=== PATIENT | female | born 1950 | race Caucasian/White ===

== ENCOUNTER → 2018-01-09 | Outpatient (CLI) | payer MEDICAID, MEDICARE ==
[~2018-01-09] MED LIST: CHRO200C PO; CITA20TA9 PO; ENAL10TA PO; ESTR1TAB15 PO; GADOBUTROL 7.5 MMOL/7.5 ML PFS ONE; MAGN100T6 PO; PRAV40TA2 PO; RED600CA2 PO; SOLI5TAB2 PO
== END | disposition home or self-care (01) ==
LOC: CFH 14:41
PROVIDERS: ATTEND Physician Assistant
DX: M48.07 Spinal stenosis, lumbosacral region (principal); M51.16 Intervertebral disc disorders with radiculopathy, lumbar region; M41.86 Other forms of scoliosis, lumbar region; G89.29 Other chronic pain
CPT/HCPCS: 72158; 82565; A9585

== ENCOUNTER → 2019-11-19 | Outpatient (CLI) | payer MEDICARE, MEDICAID ==
[~2019-11-19] MED LIST changes: +ACET-1600 PO; +ACET-709 PO; +ACET-711 PO; +BIOT25005 PO; +CALC250T PO; +CHOL100011 PO; +CHOL3000 PO; +CHOLINE PO; -CHRO200C PO; +CHROMIUM PICO200 MCG PO; +CYCL-259 PO; +DICL100G19 TP; +DICL1ADH15 TD; +ENAL20TA PO; +FAMO20TA7 PO; +FISH1CAP PO; +FLUT9.9S NS; -GADOBUTROL 7.5 MMOL/7.5 ML PFS ONE; +GLUC500T11 PO; +LEVO50TA5 PO; +LORA-445 PO; +MELO15TA24 PO; +METH750T87 PO; +MIRA50TA PO; +MULT-717 PO; +OMEP40CA42 PO; +PROP20TA PO; +TIZA2TAB2 PO; +TRIA1TAB3 PO; +UBID1CAP43 PO; +VIT1CAPS44 PO; +ZINC50TA2 PO; +[UNRECOGNIZED DRUG - CODE] PO; +iron PO
[2019-11-19 16:53] LABS: BASOPHILS # (AUTO) 0.04 x10^3/uL (0-0.1); BASOPHILS % (AUTO) 1 % (0-1); EOSINOPHILS # (AUTO) 0.22 x10^3/uL (0-0.4); EOSINOPHILS % (AUTO) 4 % (1-7); LYMPHOCYTES # (AUTO) 2.53 x10^3/uL (1-3.4); LYMPHOCYTES % (AUTO) 45 % (22-44); MD NO; MEAN CORPUSCULAR HEMOGLOBIN 31.4 pg (27.0-34.8); MEAN CORPUSCULAR HGB CONC 33.5 g/dL (32.4-35.8); MEAN CORPUSCULAR VOLUME 93.9 fL (80-100); MEAN PLATELET VOLUME 7.2 fL (7.4-10.4); MONOCYTES # (AUTO) 0.45 x10^3/uL (0.2-0.8); MONOCYTES % (AUTO) 8 % (2-9); NEUTROPHILS # (AUTO) 2.41 x10^3/uL (1.8-6.8); NEUTROPHILS % (AUTO) 43 % (42-75); PLATELET COUNT 294 x10^3/uL (130-400); RED BLOOD COUNT 4.21 x10^6/uL (3.82-5.3); RED CELL DISTRIBUTION WIDTH 12.6 % (9.6-15.2)
[2019-11-19 16:56] LABS: ALANINE AMINOTRANSFERASE 20 U/L (12-78); ALBUMIN 3.3 g/dL (3.4-5.0); ANION GAP 6 mmol/L (5-15); CALCIUM 8.6 mg/dL (8.5-10.1); CHLORIDE 109 mmol/L (98-107); CREATININE 0.71 mg/dL (0.55-1.02); INTERNATIONAL NORMALIZED RATIO 0.92 (0.93-1.1); PROTHROMBIN TIME 9.7 Seconds (9.6-11.5)
[2019-11-19 16:58] LABS: ALKALINE PHOSPHATASE 78 U/L (45-117); BILIRUBIN,TOTAL 0.2 mg/dL (0.2-1.0); TOTAL PROTEIN 7.1 g/dL (6.4-8.2)
== END | disposition home or self-care (01) ==
LOC: STAR 14:53
PROVIDERS: ATTEND Neurological Surgery
DX: Z01.818 Encounter for other preprocedural examination (principal); M47.26 Other spondylosis with radiculopathy, lumbar region; M51.16 Intervertebral disc disorders with radiculopathy, lumbar region; M48.062 Spinal stenosis, lumbar region with neurogenic claudication; M47.818 Spondylosis without myelopathy or radiculopathy, sacral and sacrococcygeal region; I45.10 Unspecified right bundle-branch block; I45.81 Long QT syndrome; Z88.1 Allergy status to other antibiotic agents; Z88.0 Allergy status to penicillin; Z88.2 Allergy status to sulfonamides; Z88.8 Allergy status to other drugs, medicaments and biological substances
CPT/HCPCS: 36415; 71046; 80053; 85025; 85610; 85730; 93005

== ENCOUNTER 2019-11-25 11:23 | Inpatient (IN) | payer MEDICARE, MEDICAID ==
[~2019-11-25] VITALS: Ht 165.1 cm; Wt 93.3 kg
[~2019-11-25 11:23] MED LIST changes: +BACITRACIN 50,000 UNIT ONE; +BACITRACIN OINT 500U/GM, 15 GM ONE; +BACITRACIN ZINC OINT 500U/GM, 0.9 GM ONE; +BUPIVACAINE/PF 0.5% ONE; +EPINEPHRINE 1 MG/ML, 1ML ONE; +FENTANYL PF 250 MCG/5ML ONE; +LIDOCAINE-MPF 2% ,5ML ONE; +PROPOFOL 10 MG/ML, 20ML ONE; +THROMBIN 5,000 UNIT VIAL TP ONE
[2019-11-25] MEDS ORDERED: PROPOFOL 50 ML ONE ×3 (11:54→15:32)
[2019-11-25] MEDS ORDERED: ROCURONIUM 10MG/ML,5ML ONE ×2 (11:56→11:57)
[2019-11-25] MEDS ORDERED: GABAPENTIN 300 MG CAPSULE PO ONE (12:00)
[2019-11-25] MEDS ORDERED: ACETAMINOPHEN 500 MG TABLET PO ONE (12:00)
[2019-11-25] MEDS ORDERED: ACETAMINOPHEN 500 MG TABLET ONE (12:09)
[2019-11-25] MEDS ORDERED: GABAPENTIN 300 MG CAPSULE ONE (12:10)
[2019-11-25] MEDS ORDERED: LACTATED RINGERS 1,000 ML IV SCH (12:13)
[2019-11-25] MEDS ORDERED: morphine SULFATE 10 MG/ML, 1ML ONE ×2 (12:15→18:42)
[2019-11-25] MEDS ORDERED: CLINDAMYCIN 150 MG/ML, 6ML ONE (12:15)
[2019-11-25] MEDS ORDERED: SODIUM CHLORIDE 0.9% PF 10ML ONE ×2 (12:17)
[2019-11-25] MEDS ORDERED: PHENYLEPHRINE 10 MG/ML ONE ×2 (12:28→13:12)
[2019-11-25] MEDS ORDERED: DEXAMETHASONE 4 MG/ML, 1ML ONE (12:28)
[2019-11-25] MEDS ORDERED: EPHEDRINE 50 MG/ML, 1ML IVPush PRN (12:30)
[2019-11-25] MEDS ORDERED: HYDROcodone/APAP 7.5-325MG/15ML UDC PO PRN (12:30)
[2019-11-25] MEDS ORDERED: MEPERIDINE/PF 25MG/ML,1ML IVPush PRN (12:30)
[2019-11-25] MEDS ORDERED: hydrALAzine 20 MG/ML, 1ML IV PRN (12:30)
[2019-11-25] MEDS ORDERED: FENTANYL PF 100 MCG/2ML IV PRN (12:30)
[2019-11-25] MEDS ORDERED: ONDANSETRON 2MG/ML, 2ML IV PRN (12:30)
[2019-11-25] MEDS ORDERED: PROMETHAZINE 25 MG/ML, 1ML IV PRN (12:30)
[2019-11-25] MEDS ORDERED: VANCOMYCIN 1,000 MG ONE ×2 (12:47→17:05)
[2019-11-25] MEDS ORDERED: VANCOMYCIN 500 MG ONE (12:47)
[2019-11-25] MEDS ORDERED: BACITRACIN 50,000 UNIT ONE (12:53)
[2019-11-25] MEDS ORDERED: THROMBIN 5,000 UNIT VIAL TP ONE (15:24)
[2019-11-25] MEDS ORDERED: ONDANSETRON 2MG/ML, 2ML ONE (17:33)
[2019-11-25] MEDS ORDERED: PHARMACY MAY ADJ FOR RENAL FX MC PRN (18:30)
[2019-11-25] MEDS ORDERED: METHOCARBAMOL 1,000 MG in DEXTROSE 5% 100 ML IV ONE (18:30)
[2019-11-25] MEDS ORDERED: MAGNESIUM HYDROXIDE 8%, 30ML UDC PO PRN (18:30)
[2019-11-25] MEDS ORDERED: SENNA/DOCUSATE TABLET PO PRN (18:30)
[2019-11-25] MEDS ORDERED: FENTANYL PF 100 MCG/2ML ONE (18:42)
[2019-11-25] MEDS: MORPHINE SULFATE 4 MG/ML, 1ML IVPush PRN ×2 (18:52→19:40)
[2019-11-25 20:25] VITALS: BP 144/72
[2019-11-25] MEDS ORDERED: PHARMACOKINETIC MONITORING MC PRN (22:00)
[2019-11-25] MEDS ORDERED: PHARMACOKINETIC CONSULTATION MC ONE (22:00)
[2019-11-25] MEDS: NS + 20MEQ KCL 1,000 ML IV SCH (22:41)
[2019-11-25] MEDS: ONDANSETRON 2MG/ML, 2ML IVPush PRN (23:52)
[2019-11-25] MEDS: OXYcodone/APAP 5/325MG TABLET PO PRN (23:52)
[2019-11-26] VITALS: BP 163/77
[2019-11-26] MEDS ORDERED: VANCOMYCIN PMX 1GM/200ML 200 ML IV ONE
[2019-11-26] MEDS: OXYcodone/APAP 5/325MG TABLET PO PRN (03:58)
[2019-11-26 04:04] VITALS: BP 159/89
[2019-11-26 05:16] LABS: CREATININE 0.64 mg/dL (0.55-1.02)
[2019-11-26] MEDS: HEPARIN 5,000 UNITS/ML, 1ML SQ SCH ×3 (05:42→22:49)
[2019-11-26] MEDS: ONDANSETRON 2MG/ML, 2ML IVPush PRN ×2 (05:42→22:10)
[2019-11-26 06:51] VITALS: BP 166/84
[2019-11-26] MEDS: NS + 20MEQ KCL 1,000 ML IV SCH ×2 (08:30→20:26)
[2019-11-26] MEDS: VANCOMYCIN PER PHARMACY MC SCH (09:00)
[2019-11-26] MEDS ORDERED: LORazepam 0.5MG TABLET PO PRN (10:30)
[2019-11-26] MEDS ORDERED: TRIAMTERENE-HCTZ 37.5/25 MG TABLET PO PRN (10:30)
[2019-11-26] MEDS ORDERED: CYCL-259 PO (10:50)
[2019-11-26] MEDS ORDERED: ACET-709 PO (10:57)
[2019-11-26] MEDS: METHOCARBAMOL 750 MG TABLET PO SCH ×2 (12:32→20:46)
[2019-11-26 13:28] VITALS: BP 165/88
[2019-11-26] MEDS ORDERED: DIPHENHYDRAMINE 25 MG CAPSULE ONE (14:55)
[2019-11-26] MEDS: DIPHENHYDRAMINE 25 MG CAPSULE PO PRN ×2 (15:02→20:55)
[2019-11-26] MEDS: PROPRANOLOL 20 MG TABLET PO SCH (15:57)
[2019-11-26 16:01] VITALS: BP 159/77
[2019-11-26] MEDS: APAP/CODEINE 300/30MG TABLET PO PRN (17:31)
[2019-11-26 19:22] VITALS: BP 154/88
[2019-11-26] MEDS ORDERED: ACETAMINOPHEN 500 MG TABLET PO PRN (20:00)
[2019-11-26] MEDS: VANCOMYCIN 1,700 MG in SODIUM CHLORIDE 0.9% 250 ML IV SCH (20:26)
[2019-11-26] MEDS: ENALAPRIL 20MG TABLET PO SCH (20:30)
[2019-11-26] MEDS: HYDROcodone/APAP 5/325 TABLET PO PRN (20:47)
[2019-11-26] MEDS ORDERED: FLUTICASONE NASAL SPRAY 16GM NAS SCH (21:00)
[2019-11-26] MEDS ORDERED: PROPRANOLOL 20 MG TABLET PO SCH (21:00)
[2019-11-26] MEDS ORDERED: FAMOTIDINE 40 MG TABLET PO SCH (21:00)
[2019-11-26] MEDS ORDERED: PRAVASTATIN 40 MG TABLET PO SCH (21:00)
[2019-11-26] MEDS ORDERED: MORPHINE SULFATE 4 MG/ML, 1ML IVPush PRN (23:30)
[2019-11-27] MEDS: PROMETHAZINE 25 MG/ML, 1ML IM PRN ×2 (00:06→11:16)
[2019-11-27 00:20] VITALS: BP 156/85
[2019-11-27] MEDS: HYDROcodone/APAP 5/325 TABLET PO PRN ×3 (01:34→11:16)
[2019-11-27] MEDS: METHOCARBAMOL 750 MG TABLET PO SCH ×2 (04:30→12:42)
[2019-11-27] MEDS ORDERED: LEVOTHYROXINE 50 MCG TABLET PO SCH (06:00)
[2019-11-27] MEDS: PROPRANOLOL 20 MG TABLET PO SCH ×2 (06:19→16:08)
[2019-11-27] MEDS: HEPARIN 5,000 UNITS/ML, 1ML SQ SCH ×2 (06:19→14:46)
[2019-11-27] MEDS: NS + 20MEQ KCL 1,000 ML IV SCH ×2 (06:20→15:48)
[2019-11-27 07:51] VITALS: BP 125/70
[2019-11-27] MEDS ORDERED: ZINC SULFATE 220 MG CAPSULE PO SCH (09:00)
[2019-11-27] MEDS ORDERED: CHOLECALCIFEROL 1,000 UNIT TABLET PO SCH (09:00)
[2019-11-27] MEDS ORDERED: CYANOCOBALAMIN 1,000 MCG TABLET PO SCH (09:00)
[2019-11-27] MEDS ORDERED: OMEGA-3/FISH OIL CAPSULE PO SCH (09:00)
[2019-11-27] MEDS ORDERED: CALCIUM CITRATE 950 MG TABLET PO SCH (09:00)
[2019-11-27] MEDS ORDERED: ESTRADIOL 1 MG TABLET PO SCH (09:00)
[2019-11-27] MEDS ORDERED: MYRBETRIQ 50 MG HOMEMEDPO SCH (09:00)
[2019-11-27] MEDS: VANCOMYCIN PER PHARMACY MC SCH (09:00)
[2019-11-27] MEDS ORDERED: MULTIVITAMINS/MINERALS TABLET PO SCH (09:00)
[2019-11-27] MEDS: ENALAPRIL 20MG TABLET PO SCH (09:05)
[2019-11-27 13:53] VITALS: BP 142/82
[2019-11-27] MEDS: VANCOMYCIN 1,700 MG in SODIUM CHLORIDE 0.9% 250 ML IV SCH (14:46)
[2019-11-27] MEDS: APAP/CODEINE 300/30MG TABLET PO PRN (16:48)
[2019-11-27] MEDS ORDERED: FAMOTIDINE 20 MG TABLET PO SCH (21:00)
== END 2019-11-27 18:28 | disposition home health service (06) | DRG 454 ==
LOC: ORIP 11:23 → 4NE 20:20
PROVIDERS: ADMIT Neurological Surgery; ATTEND Neurological Surgery
PROC: 0SG1071 Fusion of 2 or more Lumbar Vertebral Joints with Autologous Tissue Substitute, Posterior Approach, Posterior Column, Open Approach (ICD-10-PCS; 2019-11-25)
PROC: 0SG30AJ Fusion of Lumbosacral Joint with Interbody Fusion Device, Posterior Approach, Anterior Column, Open Approach (ICD-10-PCS; 2019-11-25)
PROC: 0SB20ZZ Excision of Lumbar Vertebral Disc, Open Approach (ICD-10-PCS; 2019-11-25)
PROC: 0SB40ZZ Excision of Lumbosacral Disc, Open Approach (ICD-10-PCS; 2019-11-25)
PROC: 01NB0ZZ Release Lumbar Nerve, Open Approach (ICD-10-PCS; 2019-11-25)
PROC: 01NR0ZZ Release Sacral Nerve, Open Approach (ICD-10-PCS; 2019-11-25)
PROC: 0SG3071 Fusion of Lumbosacral Joint with Autologous Tissue Substitute, Posterior Approach, Posterior Column, Open Approach (ICD-10-PCS; 2019-11-25)
PROC: 4A11X4G Monitoring of Peripheral Nervous Electrical Activity, Intraoperative, External Approach (ICD-10-PCS; 2019-11-25)
PROC: 0SG10AJ Fusion of 2 or more Lumbar Vertebral Joints with Interbody Fusion Device, Posterior Approach, Anterior Column, Open Approach (ICD-10-PCS; principal; 2019-11-25 13:00)
DX: M48.062 Spinal stenosis, lumbar region with neurogenic claudication (principal); M51.06 Intervertebral disc disorders with myelopathy, lumbar region; M51.16 Intervertebral disc disorders with radiculopathy, lumbar region; M48.07 Spinal stenosis, lumbosacral region; G89.29 Other chronic pain; K21.9 Gastro-esophageal reflux disease without esophagitis; E78.5 Hyperlipidemia, unspecified; I10 Essential (primary) hypertension; E03.9 Hypothyroidism, unspecified; J44.9 Chronic obstructive pulmonary disease, unspecified; F41.9 Anxiety disorder, unspecified; Z88.6 Allergy status to analgesic agent; Z88.1 Allergy status to other antibiotic agents; Z88.5 Allergy status to narcotic agent; Z88.0 Allergy status to penicillin; Z88.2 Allergy status to sulfonamides; Z88.8 Allergy status to other drugs, medicaments and biological substances; Z91.048 Other nonmedicinal substance allergy status; Z90.710 Acquired absence of both cervix and uterus; Z83.3 Family history of diabetes mellitus; Z82.3 Family history of stroke; Z79.899 Other long term (current) drug therapy; M47.26 Other spondylosis with radiculopathy, lumbar region; M96.1 Postlaminectomy syndrome, not elsewhere classified
CPT/HCPCS: 36415; 72100; 82565; 84520; 95938; 95941; C1713; G0378; J0171; J1100; J1644; J2405; J2550; J2704; J3010; J3370; J3480; C1762; J2270; J2370; J2800; J7050; J7120; Q0163